=== PATIENT | female | born 1960 | race Caucasian/White ===

== ENCOUNTER 2017-04-04 23:09 | Emergency (ER) | payer OTHER ==
--- NOTE | 2017-04-04 23:12 | PDOC ---
History of Present Illness - General Chief Complaint: Pain, Acute Stated Complaint: L FLANK PAIN Time Seen by Provider: 04/04/17 23:11 - History of Present Illness Initial Comments: 04/04/17 23:36 This 56-year-old woman with a history of asthma, fibromyalgia and frequent UTIs presents with approximately one week of intermittent left flank pain that has worsened over the last few days. Pain initially was lasting a few minutes, sharp in nature. Over the last few days pain has become increasingly continuous. Patient also has noted an odor to her urine during this period of time. She denies dysuria/hematuria/urinary frequency or urgency. Patient has no previous history of pyelonephritis or kidney stones. No recent episodes of acute cystitis. She has not had vomiting although in the last few days she has been mildly nauseated. She denies fever/chills. No history of trauma or overuse of lower back. Patient has tried [id number] ibuprofen for her pain without significant relief. PMH As above, no recent exacerbations of asthma s/p hysterectomy s/p partial gastrectomy Medications as noted below No known ALLERGIES 04/04/17 23:41 Past History - Past Medical History Allergies/Adverse Reactions: Allergies Allergy/AdvReac Type Severity Reaction Status Date / Time No Known Allergies Allergy Verified 09/22/16 17:00 Home Medications: Ambulatory Orders Amitriptyline HCl [Elavil -] 30 mg PO DAILY 12/29/12 Albuterol Sulfate Inhaler - [Ventolin Hfa Inhaler -] 2 inh PO Q4H PRN 09/22/16 Ondansetron [Zofran Odt -] 4 mg SL TID PRN #10 od.tablet 09/22/16 Levofloxacin [Levaquin] 750 mg PO DAILY #6 tab 04/05/17 Asthma: Yes - Surgical History GI Surgery: Yes (partial gastrectomy secondary to GI) - Immunization History TDAP Vaccination: No - Psycho/Social/Smoking Cessation Hx Anxiety: No Suicidal Ideation: No Smoking Status: No Smoking History: Never smoked Have you smoked in the past 12 months: No Number of Cigarettes Smoked Daily: 0 Hx Alcohol Use: No Drug/Substance Use Hx: No Substance Use Type: None Abd/GI Specific PMHX - Complaint Specific PMHX GI Ulcer Disease: Yes (status post surgery years ago. Partial gastrectomy) Review of Systems - Review of Systems Able to Perform ROS?: Yes Comments:: 12 point review of systems is negative except for what is noted in the history of present illness *Physical Exam - Physical Exam Comments: GENERAL: Adult female, in moderate distress secondary to left flank pain HEAD: Normal with no signs of trauma. EYES: PERRLA, EOMI, sclera anicteric, conjunctiva clear. ENT: Ears normal, nares patent, oropharynx clear without exudates. Dry mucous membranes. NECK: Normal range of motion, supple without lymphadenopathy, JVD, or masses. LUNGS: Breath sounds equal, clear to auscultation bilaterally. No wheezes, and no crackles. HEART:Regular rate and rhythm, normal S1 and S2 without murmur, rub or gallop. ABDOMEN:.normal bowel sounds No guarding, anterior tenderness or rebound.No masses No distention. Positive left flank /CVA tenderness EXTREMITIES: Normal range of motion, no edema. No clubbing or cyanosis. No erythema, or tenderness. NEUROLOGICAL: Cranial nerves II through XII grossly intact. Normal speech. No focal neurologic deficits SKIN: Warm, Dry, normal turgor, no rashes or lesions noted. ED Treatment Course - LABORATORY CBC & Chemistry Diagram: 04/04/17 23:55 04/04/17 23:55 Progress Note - Progress Note Progress Note: This 57-year-old woman presents with progressively severe left flank pain and malodorous urine. With her history of frequent UTIs, she is at risk for pyelonephritis. Urinalysis shows both red cells (few) and numerous WBCs/ bacteria. Because she has such severe flank pain, it is possible that she may have ureteral stone with infected urine, causing a potentially complicated pyelonephritis. Although the patient does not appear markedly ill, she does have significant pain. Therefore, renal stone protocol spiral CT performed to evaluate for evidence of ureteral obstruction/perinephric abscess, etc. Meanwhile, the patient will receive a liter normal saline/30 mg IV Toradol for pain relief. CBC/chemistry profile/lactic acid will be sent as well as urine culture and sensitivity Renal stone protocol spiral CT negative for ureteral stone/hydronephrosis/ perinephric abscess or other acute pathology Medical Decision Making - Medical Decision Making 04/05/17 02:41 Patient feeling much better after a liter of normal saline, 30 mg of Toradol IV and 750 mg of Levaquin IV. Pain is improved and she is not nauseated. Laboratory values as noted above; CBC essentially normal as is chemistry profile. Lactic acid is not elevated at 0.7. Patient will be discharged with remainder of the one-week course of 750 mg Levaquin daily transmitted to her pharmacy. Patient will return if she has fever/vomiting or persistent severe pain. Otherwise, she will follow-up with her own doctor within the next 5-7 days *DC/Admit/Observation/Transfer Diagnosis at time of Disposition: Acute pyelonephritis - Discharge Dispostion Disposition: HOME Condition at time of disposition: Stable - Prescriptions Prescriptions: Levofloxacin [Levaquin] 750 mg PO DAILY #6 tab - Patient Instructions Printed Discharge Instructions: DI for Kidney Infection Additional Instructions: drink plenty of fluids levaquin 750mg daily for 6 more days ibuprofen/acetaminophen/naproxen as needed followup with your doctor within 5-7 days return to ER if you have fever/chills, vomiting or severe,persistent pain
[2017-04-04 23:14] VITALS: BP 115/73; PULSE 81; TEMP 98.5; BMI 22.6
[2017-04-04 23:21] LABS: PH,URINE 6.5 (4.5-8); URINE APPEARANCE Cloudy; URINE BILIRUBIN Negative (NEGATIVE); URINE GLUCOSE (UA) Negative (NEGATIVE); URINE KETONE Negative (NEGATIVE); URINE NITRITE Positive (NEGATIVE); URINE PROTEIN Negative (NEGATIVE); URINE UROBILINOGEN 0.2 E.U/dl (0.2-1.0)
[2017-04-04 23:22] LABS: URINE BLOOD 1+ (NEGATIVE); URINE COLOR YELLOW; URINE LEUK ESTERASE 1+ (NEGATIVE)
[2017-04-04 23:28] LABS: URINE RBC 0-2 /hpf (0-3); URINE WBC 80-100 (3-5)
[2017-04-04 23:29] LABS: URINE BACTERIA MANY /hpf (NEGATIVE)
[2017-04-04] MEDS ORDERED: KETOROLAC TROMETHAMINE 30 MG/1 ML VIAL IVPUSH ONE (23:34)
[2017-04-04] MEDS ORDERED: SODIUM CHLORIDE 1,000 ML IV STA (23:34)
[2017-04-05] MEDS ORDERED: KETOROLAC TROMETHAMINE 30 MG/1 ML VIAL ONE (00:04)
[2017-04-05 00:38] LABS: BASOPHIL 0.6 % (0-2.0); EOSINOPHIL 1.1 % (0-4.5); MCH 28.3 pg (25.7-33.7); MCHC 32.6 g/dl (32.0-36.0); MEAN CELL VOLUME 86.7 fl (80-96); MEAN PLT VOLUME 8.7 fl (7.5-11.1); PLATELET COUNT 288 K/MM3 (134-434); RDW 13.8 % (11.6-15.6); WHITE BLOOD COUNT 6.7 K/mm3 (4.0-10.0)
[2017-04-05] MEDS ORDERED: LEVOFLOXACIN 750 MG IVPB 150 ML IVPB ONE ×2 (01:26→01:29)
[2017-04-05 01:27] LABS: ALBUMIN 4.5 g/dl (3.4-5.0); ALK PHOS 108 U/L (45-117); ANION GAP 9 (8-16); BILIRUBIN,TOTAL 0.5 mg/dL (0.2-1.0); CALCIUM 9.6 mg/dL (8.5-10.1); CO2 29 mmol/L (21-32); CREATININE 0.5 mg/dL (0.55-1.02); GLUCOSE,RANDOM 98 mg/dL (74-106); SGPT/ALT 34 U/L (12-78); TOT PROT 7.7 g/dl (6.4-8.2)
[2017-04-05 01:29] LABS: SGOT/AST 22 U/L (15-37)
== END 2017-04-05 02:37 | disposition home or self-care (01) ==
LOC: FER 23:09
PROC: 3E03329 Introduction of Other Anti-infective into Peripheral Vein, Percutaneous Approach (ICD-10-PCS; principal; 2017-04-04)
PROC: 3E0337Z Introduction of Electrolytic and Water Balance Substance into Peripheral Vein, Percutaneous Approach (ICD-10-PCS; 2017-04-04)
DX: N10 Acute pyelonephritis (principal); J45.909 Unspecified asthma, uncomplicated; M79.7 Fibromyalgia
CPT/HCPCS: 36415; 74176; 80053; 81003; 81015; 83605; 85025; 87040; 87086; 87186; 99283-25

== ENCOUNTER 2017-11-02 23:33 | Emergency (ER) | payer OTHER ==
[2017-11-02] MEDS ORDERED: diazePAM 5 MG TABLET PO ONE (23:36)
--- NOTE | 2017-11-02 23:41 | PDOC ---
History of Present Illness - General Chief Complaint: Pain, Acute Stated Complaint: LEG PAIN - History of Present Illness Initial Comments: 11/03/17 02:17 57y female, fibromyalgia presents with acute onset upper leg pain, b/l first l then r overlying quads no fever, no chills no prior similar episode no back pain, no urinary/ stool complaints pmh: fibromylagia fhx: non-contrib ros: reviewed and otherwise negative o/e uncomfortable no diaphoresis nonicteric rrr cta abd-nt back: + lower lumbar tenderness LEs: no focal tenderness, no erythema, no calor neuro: nl strength and sensation throughout LEs vasc: nl pulses. nl cap refill a/p muscle spasm sciatica less likely analgesia administered in ED with relief Past History - Past Medical History Allergies/Adverse Reactions: Allergies Allergy/AdvReac Type Severity Reaction Status Date / Time No Known Allergies Allergy Verified 08/12/17 22:07 Home Medications: Ambulatory Orders Amitriptyline HCl [Elavil -] 30 mg PO DAILY 12/29/12 Albuterol Sulfate Inhaler - [Ventolin Hfa Inhaler -] 2 inh PO Q4H PRN 09/22/16 Ondansetron [Zofran Odt -] 4 mg SL TID #21 od.tablet 08/14/17 Oxycodone HCl/Acetaminophen [Percocet 5-325 mg Tablet] 2 tab PO Q6H PRN #10 tablet MDD 8 tab 11/03/17 Asthma: Yes COPD: No - Surgical History GI Surgery: Yes (partial gastrectomy secondary to GI) - Immunization History TDAP Vaccination: No - Suicide/Smoking/Psychosocial Hx Smoking Status: No Smoking History: Never smoked Have you smoked in the past 12 months: No Number of Cigarettes Smoked Daily: 0 Hx Alcohol Use: No Drug/Substance Use Hx: No Substance Use Type: None *DC/Admit/Observation/Transfer Diagnosis at time of Disposition: Muscle spasm - Discharge Dispostion Disposition: HOME Condition at time of disposition: Stable - Referrals Referrals: Shayan Conklin [Primary Care Provider] - Call tomorrow - Patient Instructions Printed Discharge Instructions: DI for Muscle Strain - Post Discharge Activity
[2017-11-02 23:47] VITALS: BP 128/78; PULSE 92; TEMP 97.4; BMI 22.6
[2017-11-03] MEDS ORDERED: KETOROLAC TROMETHAMINE 60 MG/2 ML VIAL IM ONE (00:05)
[2017-11-03] MEDS ORDERED: KETOROLAC TROMETHAMINE 60 MG/2 ML VIAL ONE (00:08)
[2017-11-03] MEDS ORDERED: HYDROmorphone HCL CARPU-JECT 2 MG/1 ML DISP.SYRIN IM STA (01:04)
[2017-11-03] MEDS ORDERED: HYDROmorphone HCL CARPU-JECT 2 MG/1 ML DISP.SYRIN ONE (01:05)
== END 2017-11-03 02:20 | disposition home or self-care (01) ==
LOC: FER 23:33
PROC: 3E023NZ Introduction of Analgesics, Hypnotics, Sedatives into Muscle, Percutaneous Approach (ICD-10-PCS; principal; 2017-11-02)
PROC: 3E0233Z Introduction of Anti-inflammatory into Muscle, Percutaneous Approach (ICD-10-PCS; 2017-11-02)
DX: M62.838 Other muscle spasm (principal); J45.909 Unspecified asthma, uncomplicated
CPT/HCPCS: 99282-25